=== PATIENT | male | born 1945 | race Caucasian/White ===

== ENCOUNTER → 2018-12-20 07:27 | Outpatient (CLI) | payer MEDICARE, BC ==
--- NOTE | 2018-12-25 11:41 | EC ---
PATIENT:SHE WILLIAM DATE OF SERVICE: 12/20/18 SEX: M MEDICAL RECORD: [id number] DATE OF : 49 [facility] AGE OF PATIENT: 73 ADMISSION DATE: 12/20/18 REFERRING PHYSICIAN: INTERPRETING PHYSICIAN: JUANA GRESHAM MD ECHOCARDIOGRAM REPORT ECHO CHARGES 4 ECHO COMPLETE Date: 12/20/18 CLINICAL DIAGNOSIS: DYSPNEA HX CAD/HTN/PACEMAKER ECHOCARDIOGRAPHIC MEASUREMENTS (adult normal given) AC root (d.<3.7cm) 3.6 cm LV Septum d (<1.2 cm> 1.4 cm Valve Excursion 1.8 cm LV Septum (systole) 1.7 cm Left Atria (s.<4.0cm> 5.2 cm LVPW d(<1.2cm) 1.4 cm RV (d.<2.3cm) 4.0 cm LVPW (sytole) 1.8 cm LV diastole(<5.6CM) 5.7 cm MV E-F(>70mm/sec) cm LV systole 3.5 cm LVOT Diameter 1.9 cm MV exc.(>10mm) 1.6 cm Est.ejection fraction (50-75%) % DOPPLER: LVIT cm/sec A 25.0 cm/sec E 78.0 cm/sec LA cm/sec RVSP 47 mmHg LVOT 86 cm/sec AOP1/2T m/s Asc. 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 Gresham TAPE# PACS Pericardial Effusion N DATE OF SERVICE: FINDINGS: 1. Left ventricular chamber size is mildly dilated. Left ventricular systolic function is normal. Overall ejection fraction estimated at 55%. 2. The left atrium is moderately dilated at 5.2 cm. Right atrium and right ventricular chamber sizes are mildly dilated. 3. Valvular structures have normal structure and motion. 4. Doppler interrogation reveals mild mitral regurgitation, mild tricuspid regurgitation, no other valvular insufficiency or stenosis. Pulmonary systolic ECHOCARDIOGRAM REPORT [id number] SHE WILLIAM pressure is mildly elevated, estimated 47 mmHg. 5. No evidence of pericardial effusion or left ventricular thrombus. TRANSINT:[id number] Voice Confirmation ID: [id number] DOCUMENT ID: [id number] JUANA GRESHAM MD at 1141 CC: [id number] DICTATION DATE: 12/21/18 1102 BEHAVIORAL ASSISTANT: 12/21/18 1107 DEP CLI 12/20/18 [place] [id number] [place] [id number]
--- NOTE | 2018-12-25 11:41 | ST ---
PATIENT:SHE WILLIAM MEDICAL RECORD: [id number] SEX: M LOCATION:[facility] ORDER #: ADMISSION DATE: 12/20/18 AGE OF PATIENT: 73 REFERRING PHYSICIAN: INTERPRETING PHYSICIAN: JUANA PINTO MD DATE OF SERVICE: 12/20/2018 PROCEDURE: Nuclear stress test. INDICATION: Angina, coronary artery disease, and atrial fibrillation, chronic shortness of breath, and dyspnea on exertion. He was exercised on standard Lexiscan protocol with 33 mCi of sestamibi injected at peak stress, 11 mCi used previously for rest images. FINDINGS: Gated SPECT reveals mildly depressed ejection fraction of 44% with decreased thickening and brightening throughout the inferior segments. SPECT imaging Cardiolite was used as myocardial perfusion agent. There is a fixed perfusion defect inferiorly compatible with previous inferior myocardial infarction. No evidence of reversible changes. The remaining segments with homogeneous uptake at rest and stress. OVERALL IMPRESSION: This is a mildly abnormal nuclear stress test only with a fixed perfusion defect inferiorly. No ongoing ischemic burden. Ejection fraction mildly depressed at 44%. TRANSINT:[id number] Voice Confirmation ID: [id number] DOCUMENT ID: [id number] JUANA PINTO MD at 1141 CC: [id number] DICTATION DATE: 12/21/18 1114 TAXI DRIVER: 12/21/18 2258 [facility] CLI 12/20/18 [place] [id number] [place] [address]
== END | disposition home or self-care (01) ==
LOC: D.HCCARDIO 07:27 → D.HCCECHO 13:00
PROVIDERS: ATTEND Internal Medicine Interventional Cardiology
DX: R06.00 Dyspnea, unspecified (principal)